=== PATIENT | male | born 1970 | race Caucasian/White ===

== ENCOUNTER → 2016-04-15 | Outpatient (CLI) | payer BC ==
[~2016-04-15] MED LIST: OPTIRAY 320 IV PRN
--- NOTE | 2016-04-15 12:35 | DIAGNOSTIC IMAGING REPORT ---
CT angiogram of the abdomen ANGIO ABDOMEN WITH CONTRAST CLINICAL HISTORY: HISTORY: Splenic artery aneurysm TECHNIQUE: Transaxial acquisition with multi axial reformatted images COMPARISON STUDY: None FINDINGS: Lung bases are clear. Liver spleen pancreas are unremarkable. Bowel pattern is nonobstructive. Kidneys enhance uniformly. Abdominal aorta as well as proximal iliac fast fracture is normal in course and caliber. Origins of the renal arteries, celiac axis, and superior mesenteric artery are unremarkable. There is a 1.5 x 1.1 cm calcified splenic artery aneurysm. By CT criteria this appears to be stable. All remaining abdominal vasculature appears unremarkable. All vascular structures of the mesentery appear unremarkable. IMPRESSION: 1. 1.5 x 1.1 cm peripherally calcified splenic artery aneurysm. 2. This appears to be a stable finding 3. Remainder of the abdominal CTA study shows no significant vascular anomaly Electronically signed by: Jaya Mark M.D. 04/15/2016 12:33 PM Dictated Date/Time: 04/15/2016 12:28 PM
== END | disposition home or self-care (01) ==
LOC: C.CTS 12:04
PROVIDERS: ATTEND Family Medicine
DX: I72.8 Aneurysm of other specified arteries (principal)

== ENCOUNTER → 2016-09-26 | Outpatient (CLI) | payer BC ==
--- NOTE | 2016-09-26 12:32 | DIAGNOSTIC IMAGING REPORT ---
SOFT TISS HEAD/NECK-THYROID CLINICAL HISTORY: 46 years-old Male presenting with THYROID NODULES ON U/S. TECHNIQUE: Real-time grayscale and color and spectral Doppler ultrasound imaging of the thyroid and base of the neck was performed. COMPARISON: CT from 2017. FINDINGS: Right lobe: Mildly heterogeneous parenchyma. The right lobe of the thyroid measures 5.0 x 2.1 x 2.4 cm. In the medial midpole, 0.7 x 0.4 x 0.7 cm isoechoic to hypoechoic well-defined nodule, wider than tall without calcification. Additionally, 4 mm lower pole cyst noted. No parenchymal hyperemia. Left lobe: Mildly heterogeneous parenchyma. The left lobe of the thyroid measures 4.3 x 1.5 x 2.0 cm. In the mid pole, 0.6 x 0.4 x 0.6 cm hypoechoic fairly well-defined nodule, wider than tall without calcification. No parenchymal hyperemia. Isthmus: The isthmus measures 4 mm in thickness. No nodules. IMPRESSION: Heterogeneous background thyroid parenchyma could suggest underlying thyroid abnormality such as Nir's thyroiditis or Graves' disease. Multiple nodules are low to intermediate in suspicion for malignancy. Per the [place] [employer] guidelines for thyroid nodules, no fine-needle aspiration is indicated at this time. Follow-up as clinically indicated. Electronically signed by: Wilmer Coates M.D. 09/26/2016 12:30 PM Dictated Date/Time: 09/26/2016 12:26 PM
== END | disposition home or self-care (01) ==
LOC: C.ULTR 11:59
PROVIDERS: ATTEND Physician Assistant
DX: Z09 Encounter for follow-up examination after completed treatment for conditions other than malignant neoplasm (principal); E04.1 Nontoxic single thyroid nodule

== ENCOUNTER → 2017-03-13 | Outpatient (CLI) | payer OTHER | END | disposition home or self-care (01) | LOC: C.LAB 07:08 | PROVIDERS: ATTEND Internal Medicine Cardiovascular Disease | DX: Q21.1 Atrial septal defect (principal); E78.5 Hyperlipidemia, unspecified; Z82.49 Family history of ischemic heart disease and other diseases of the circulatory system ==